=== PATIENT | female | born 1995 | race Caucasian/White ===

== ENCOUNTER → 2021-11-02 19:56 | Observation (INO) ==
[2021-11-02 19:19] LABS: Bilirubin,Urine Negative (Negative); Blood,Urine Negative (Negative); Clarity,Urine Clear (Clear); Color,Urine Light-Yellow (Yellow); Glucose,Urine (UA) Normal (Normal); Ketones,Urine Negative (Negative); Leukocyte Esterase,Urine Negative (Negative); Nitrite,Urine Negative (Negative); PH,Urine 6.5 pH Units (5.0-8.0); Protein,Urine Trace mg/dL (Neg-Trace); Specific Gravity,Urine 1.015 (1.010-1.025); Urobilinogen,Urine Normal (Normal)
== END | disposition home or self-care (01) ==
LOC: 1NENULAB
PROVIDERS: ADMIT Advanced Practice Midwife; ATTEND Advanced Practice Midwife

== ENCOUNTER 2021-11-10 04:00 | Inpatient (IN) ==
[2021-11-10] MEDS ORDERED: Famotidine 20 MG/2 ML VIAL IVP PRN (14:53)
[2021-11-10] MEDS ORDERED: Metoclopramide 10 MG/2 ML VIAL IVP PRN (14:53)
[2021-11-10] MEDS ORDERED: Naloxone 0.4 MG/ML INJ IVP PRN ×2 (14:53→15:00)
[2021-11-10] MEDS ORDERED: Epidural Premix (fent/bupiv) 110 ML EP SCH (15:00)
[2021-11-10] MEDS ORDERED: Ropivacaine/PF 0.2% 20 ML VIAL EP ONE (15:00)
[2021-11-10] MEDS ORDERED: Ondansetron 4 MG/2 ML VIAL IVP PRN (15:00)
[2021-11-10] MEDS ORDERED: EPHEDrine 50 MG/ML VIAL IVP PRN (15:00)
[2021-11-10 15:13] LABS: Basophils % 0.3 %; Eosinophils # 0.1 K/mcL (0.0-0.6); Hematocrit 39.9 % (35.3-44.9); Hemoglobin 13.5 g/dL (11.5-15.4); Immature Granulocytes % 0.7 % (0-4); Lymphocytes % 21.4 %; Mean Corpuscular HGB Conc 33.8 g/dL (31.6-35.5); Mean Corpuscular Hemoglobin 30.5 pg (28.0-33.3); Mean Corpuscular Volume 90.1 fL (83.0-100.0); Mean Platelet Volume 11.9 fL (9.4-12.4); Monocytes # 0.5 K/mcL (0.0-1.3); Monocytes % 5.8 %; Neutrophils # 6.5 K/mcL (1.6-8.9); Platelet Count 179 K/mcL (140-400); Red Blood Count 4.43 M/mcL (3.82-4.97); Segmented Neutrophils % 70.8 %; White Blood Count 9.2 K/mcL (4.3-11.1)
[2021-11-10] MEDS ORDERED: Ringers Solution, Lactated 1,000 ML IVC SCH (15:15)
[2021-11-10] MEDS ORDERED: Oxytocin 30 UNIT/503 ML BAG IVC SCH (15:15)
[2021-11-10 15:25] LABS: Amphetamine Screen,Urine Negative ng/mL (Cutoff=1000); Barbiturate Screen,Urine Negative ng/mL (Cutoff=200); Benzodiazepines Screen,Urine Negative ng/mL (Cutoff=200); Cannabinoid Screen,Urine Negative ng/mL (Cutoff = 50); Cocaine Screen,Urine Negative ng/mL (Cutoff= 300); Opiate Screen,Urine Negative ng/mL (Cutoff=300); Phencyclidine Screen,Urine Negative ng/mL (Cutoff=25)
[2021-11-10] MEDS ORDERED: Ropivacaine/PF 0.2% 20 ML VIAL ONE (20:59)
[2021-11-11] MEDS ORDERED: 0.9 % Sodium Chloride 500 ML ONE (02:51)
[2021-11-11] MEDS ORDERED: Benzocaine/Menthol 56 GM AEROSOL SPRAY TP PRN (10:59)
[2021-11-11] MEDS ORDERED: Measles/Mumps/Rubella Vacc 0.5 ML VIAL SQ PRN (10:59)
[2021-11-11] MEDS ORDERED: Lanolin 7 G OINT...G. TP PRN (10:59)
[2021-11-11] MEDS ORDERED: Oxytocin 30 UNIT/503 ML BAG IVC SCH (10:59)
[2021-11-11] MEDS ORDERED: Ondansetron ODT 4 MG TAB.RAPDIS SL PRN (10:59)
[2021-11-11] MEDS: Acetaminophen 325 MG TABLET PO SCH ×3 (11:08→22:15)
[2021-11-11] MEDS: Ibuprofen 600 MG TABLET PO SCH ×3 (11:09→22:15)
[2021-11-11] MEDS: *HR* Nalbuphine 10 MG/ML AMPUL IV PRN (11:42)
[2021-11-11 14:10] VITALS: TEMP 98
[2021-11-12] MEDS: *HR* Nalbuphine 10 MG/ML AMPUL IV PRN (00:19)
[2021-11-12] MEDS: Ibuprofen 600 MG TABLET PO SCH ×3 (04:36→16:27)
[2021-11-12] MEDS: Acetaminophen 325 MG TABLET PO SCH ×3 (04:36→16:27)
[2021-11-12 05:07] LABS: Basophils # 0.1 K/mcL (0.0-0.2); Basophils % 0.4 %; Eosinophils # 0.1 K/mcL (0.0-0.6); Eosinophils % 0.8 %; Hematocrit 33.3 % (35.3-44.9); Immature Granulocytes % 1.1 % (0-4); Lymphocytes # 2.7 K/mcL (0.6-4.6); Lymphocytes % 16.5 %; Mean Corpuscular HGB Conc 33.3 g/dL (31.6-35.5); Mean Corpuscular Hemoglobin 30.4 pg (28.0-33.3); Mean Corpuscular Volume 91.2 fL (83.0-100.0); Mean Platelet Volume 11.2 fL (9.4-12.4); Neutrophils # 12.5 K/mcL (1.6-8.9); Platelet Count 155 K/mcL (140-400); Red Blood Count 3.65 M/mcL (3.82-4.97); Red Cell Distribution Width 13.2 % (11.5-14.5); Segmented Neutrophils % 75.2 %
[2021-11-12 05:08] LABS: Hemoglobin 11.1 g/dL (11.5-15.4); White Blood Count 16.6 K/mcL (4.3-11.1)
[2021-11-12 07:29] VITALS: BP 109/65; PULSE 110; O2SAT 99
[2021-11-12] MEDS: Prenatal Vit/FA 1 EACH TABLET PO SCH ×2 (09:03→09:08)
[2021-11-12 15:23] LABS: Basophils # 0.1 K/mcL (0.0-0.2); Basophils % 0.5 %; Eosinophils # 0.2 K/mcL (0.0-0.6); Hematocrit 32.5 % (35.3-44.9); Hemoglobin 10.9 g/dL (11.5-15.4); Immature Granulocytes % 0.9 % (0-4); Lymphocytes # 2.9 K/mcL (0.6-4.6); Mean Corpuscular HGB Conc 33.5 g/dL (31.6-35.5); Mean Corpuscular Hemoglobin 30.6 pg (28.0-33.3); Mean Corpuscular Volume 91.3 fL (83.0-100.0); Mean Platelet Volume 11.2 fL (9.4-12.4); Monocytes # 0.9 K/mcL (0.0-1.3); Monocytes % 5.5 %; Neutrophils # 12.6 K/mcL (1.6-8.9); Platelet Count 161 K/mcL (140-400); Red Blood Count 3.56 M/mcL (3.82-4.97); Red Cell Distribution Width 13.3 % (11.5-14.5); Segmented Neutrophils % 75.1 %; White Blood Count 16.7 K/mcL (4.3-11.1)
== END 2021-11-12 17:20 | disposition home or self-care (01) | DRG 806 ==
LOC: 1NENULAB 13:07 → 1NENUOBS 11-11 10:55
PROVIDERS: ADMIT Obstetrics & Gynecology; ATTEND Obstetrics & Gynecology